=== PATIENT | male | born 2000 | race Caucasian/White ===

== ENCOUNTER 2022-05-13 14:42 | Emergency (ER) | payer OTHER ==
[2022-05-13] MEDS ORDERED: Ketorolac Tromethamine 30 MG/ML VIAL ONE (14:49)
== END 2022-05-13 16:40 | disposition home or self-care (01) ==
LOC: CSHERS 14:42
DX: S80.12XA Contusion of left lower leg, initial encounter (principal); S80.11XA Contusion of right lower leg, initial encounter; S60.222A Contusion of left hand, initial encounter; V89.2XXA Person injured in unspecified motor-vehicle accident, traffic, initial encounter
CPT/HCPCS: 70450; 71045; 72125; 96374; G0390; J1885

== ENCOUNTER 2025-05-17 09:35 | Outpatient (CLI) | payer BC | END 2025-05-17 09:36 | disposition home or self-care (01) | LOC: CSHULT 09:35 | DX: R19.02 Left upper quadrant abdominal swelling, mass and lump (principal); R16.1 Splenomegaly, not elsewhere classified; K80.20 Calculus of gallbladder without cholecystitis without obstruction | CPT/HCPCS: 76700 ==